=== PATIENT | male | born 1950 | race Asian ===

== ENCOUNTER 2018-06-23 16:47 | Emergency (ER) | payer MEDICARE, OTHER ==
[~2018-06-23] VITALS: Ht 180.3 cm; Wt 99.3 kg
[2018-06-23 16:59] VITALS: Ht 180.3 cm; Wt 99.3 kg
--- NOTE | 2018-06-23 20:48 | ERD ---
ER Documentation Chief Complaint Chief Complaint upper R gum bleeding after tooth extraction 6 hours ago HPI 68-year-old male presents with complaint of bleeding since he had a tooth extrac tion 6 hours ago. States that the bleeding is been continuous and he called his dentist and his dentist told him to come in to the ER. States that he takes aspirin which he stopped a week ago because he knew his can have the procedure. Denies being on any anticoagulants or having any coagulopathy. Denies lightheadedness palpitations, syncope, nausea, vomiting. Currently taking amoxicillin. Denies medical history or allergies. ROS All systems reviewed and are negative except as per history of present illness. Medications Home Meds Active Scripts Acetaminophen* (Tylophen*) 500 Mg Capsule, 2 CAP PO Q8H PRN for PAIN AND OR ELEVATED TEMP, #20 CAP Prov:YESSICA LOUIS 06/23/18 PMhx/Soc Medical and Surgical Hx: pt denies Medical Hx, pt denies Surgical Hx Hx Alcohol Use: No Hx Substance Use: No Hx Tobacco Use: No Smoking Status: Never smoker FmHx Family History: No diabetes, No coronary disease, No other Physical Exam Vitals Vital Signs Date Temp Pulse Resp B/P (MAP) Pulse Ox O2 O2 Flow FiO2 Time Delivery Rate 06/23/18 97.9 91 18 155/97 96 Room Air 21:28 (116) 06/23/18 97.9 94 18 159/72 95 16:59 (101) Physical Exam Const: No acute distress Head: Atraumatic Eyes: Normal Conjunctiva ENT: Normal External Ears, Nose and Mouth. Bleeding noted from the area of tooth extraction in the upper right gum. Bleeding is mild. There are no large clots noted. Neck: Full range of motion. No meningismus. Resp: Clear to auscultation bilaterally Cardio: Regular rate and rhythm, no murmurs Abd: Soft, non tender, non distended. Normal bowel sounds Skin: No petechiae or rashes Back: No midline or flank tenderness Ext: No cyanosis, or edema Neur: Awake and alert Psych: Normal Mood and Affect Procedures/MDM 68-year-old male presents with complaint of bleeding since he had a tooth extraction 6 hours ago. States that the bleeding is been continuous and he called his dentist and his dentist told him to come in to the ER. States that he takes aspirin which he stopped a week ago because he knew his can have the procedure. Denies being on any anticoagulants or having any coagulopathy. Denies lightheadedness palpitations, syncope, nausea, vomiting. Currently taking amoxicillin. Denies medical history or allergies. CBC and CMP ordered to rule out to rule out coagulopathy. Patient declined labs AGAINST MEDICAL ADVICE. Pressure was applied with gauze in the ER and bleeding was stopped. I advised patient to continue applying pressure and to follow-up with his primary care regarding his aspirin intake. Patient's bleeding was successfully controlled in the ER. Low suspicion for symptomatic anemia, shock, hypotension, or other emergent condition. Patient discharged with strict ER precautions. Patient advised to follow up with PMD. All questions answered at discharge. Departure Diagnosis: Primary Impression: Bleeding Condition: Stable YESSICA LOUIS Jun 23, 2018 20:47
[2018-06-23] MEDS ORDERED: ACET500C5 PO (21:20)
[2018-06-23 21:28] VITALS: BP 155/97; PULSE 91; RESP 18
== END 2018-06-23 21:30 | disposition home or self-care (01) ==
LOC: FTE 16:47
DX: K91.840 Postprocedural hemorrhage of a digestive system organ or structure following a digestive system procedure (principal)
CPT/HCPCS: 99282

== ENCOUNTER 2018-08-17 05:51 | Day surgery (SDC) | payer MEDICARE, OTHER ==
[2018-08-14 11:31] VITALS: Ht 154.9 cm; Wt 99.0 kg
[2018-08-17] VITALS (11 sets, daily range): BP systolic 121–150; BP diastolic 68–91; PULSE 80–91; RESP 11–43
[~2018-08-17] VITALS: Ht 154.9 cm; Wt 99.0 kg
[~2018-08-17 05:51] MED LIST: AMLO-147 PO; ASPI-817 PO; ATOR40TA68 PO; LOSA100T15 PO; METF500T24 PO; MULTI PO; OMEG-105 PO
[2018-08-17] MEDS ORDERED: CEFAZOLIN 2 GM/50 ML (PMX) 50 ML IVPB ONE (06:00)
[2018-08-17] MEDS: SOD CHLORIDE 0.9% 1,000 ML IV SCH ×2 (06:43→08:54)
[2018-08-17] MEDS ORDERED: ALLO300T2 PO (06:48)
[2018-08-17] MEDS ORDERED: BUPIVACAINE 0.25% (MPF) 30 ML INJ ONE (06:53)
[2018-08-17] MEDS ORDERED: LIDOCAINE 2% (MDV) 20 ML INJ ONE ×2 (07:20→08:17)
[2018-08-17] MEDS ORDERED: BUPIVACAINE 0.5% (SDV) 30 ML INJ ONE (07:20)
--- NOTE | 2018-08-17 07:20 | PREAC ---
Date/Time of Note Date/Time of Note DATE: 08/17/18 TIME: 07:18 Anesthesia Eval and Record Evaluation Time Pre-Procedure Interview DATE: 08/17/18 TIME: 07:18 Age 68 Sex male NPO: 8 hrs Preoperative diagnosis LEFT LEG MASS Planned procedure EXCISION LEFT LEG MASS Past Medical History Past Medical History: Includes Cardio: HTN, Dyslipidemia Endo: Diabetes Musculoskeletal: Other (GOUT) GI: Morbid obesity Surgery & Anesthesia Issues No known issue Meds Anticoagulation: No Beta Max within 24 hr: No Reason Beta Max not given: Pt. not on B-Max Reported Medications Allopurinol* (Allopurinol*) 300 Mg Tablet, 300 MG PO DAILY, TAB 08/17/18 Multivitamins* (Theragran*) 1 Tab Tab, 1 TAB PO DAILY, TAB 08/14/18 [place]-3 Fatty Acids/Fish Oil (Fish Oil 1,200 mg Softgel) 1 Each Capsule, 1 EACH PO TID, CAP 08/14/18 Aspirin* (Aspirin* EC) 81 Mg Tablet.dr, 81 MG PO DAILY, TAB 08/14/18 Amlodipine Besylate* (Amlodipine Besylate*) 10 Mg Tablet, 10 MG PO DAILY, #30 TAB 08/14/18 Losartan Potassium* (Losartan Potassium*) 100 Mg Tablet, 100 MG PO DAILY, TAB 08/14/18 Metformin Hcl* (Metformin Hcl*) 500 Mg Tablet, 500 MG PO WITH BREAKFAST, #30 TAB 08/14/18 Atorvastatin* (Atorvastatin*) 40 Mg Tablet, 10 MG PO QHS, #30 TAB 08/14/18 Discontinued Scripts Acetaminophen* (Tylophen*) 500 Mg Capsule, 2 CAP PO Q8H PRN for PAIN AND OR E LEVATED TEMP, #20 CAP Prov:YESSICA LOUIS 06/23/18 Current Medications Sodium Chloride 1,000 ml @ 75 mls/hr [id number] IV Last administered on 08/17/18at 06:43; Admin Dose 75 MLS/HR; Start 08/17/18 at 06:00; Stop 08/17/18 at 19:19 Meds reviewed: Yes Allergies Coded Allergies: No Known Allergy (Unverified , 08/17/18) Allergies Reviewed: Yes Labs/Studies Labs Reviewed: Reviewed by anesthesiologist test: N/A Studies: ECG (NL), CXR (NL) Pre-procedure Exam Last vitals Vital Signs Date p Pulse Resp B/P (MAP) Pulse Ox O2 O2 Flow FiO2 Time Delivery Rate 08/17/18 98.8 91 18 150/91 94 Room Air 07:00 (110) Airway: Adequate mouth opening, Adequate thyromental dist Mallampati: Mallampati II Teeth: Abnormal (UPPER PARTIAL) Lung: Normal Heart: Normal ASA Physical Status ASA physical status: 3 Emergency: None Planned Anesthetic General/MAC: MAC Planned Pain Management Parenteral pain med Pre-operative Attestations Prior to commencing anesthesia and surgery, the patient was re-evaluated, there was verification of: *The patient's identity *The results of appropriate recent lab work and preoperative vital signs *The above evaluation not changing prior to induction *Anesthetic plan, risk benefits, alternative and complications discussed with patient/family; questions answered; patient/family understands, accepts and wishes to proceed. Ruddy Ambrose M.D. August 17, 2018 07:20
[2018-08-17] MEDS ORDERED: ONDANSETRON 4 MG INJ IV PRN (07:30)
[2018-08-17] MEDS ORDERED: IPRATROPIUM (NEB) 0.5 MG/2.5 ML AMP HHN PRN (07:30)
[2018-08-17] MEDS ORDERED: hydrALAzine 20 MG INJ IV PRN (07:30)
[2018-08-17] MEDS ORDERED: ALBUTEROL 0.083% (NEB) 2.5 MG/3 ML AMP HHN PRN (07:30)
[2018-08-17] MEDS ORDERED: OXYCODONE/ACETAMINOPHEN (5/325) TAB PO PRN ×2 (07:30)
[2018-08-17] MEDS ORDERED: EPHEDrine SULFATE 50 MG/5 ML SYG IV PRN (07:30)
[2018-08-17] MEDS ORDERED: FENTAnyl 50 MCG/ML VIAL IV PRN ×3 (07:30)
[2018-08-17] MEDS ORDERED: DIPHENHYDRAMINE 50 MG INJ IV PRN (07:30)
[2018-08-17] MEDS ORDERED: MEPERIDINE 25 MG INJ IV PRN (07:30)
[2018-08-17] MEDS ORDERED: LABETALOL HCL 20MG INJ IV PRN (07:30)
[2018-08-17] MEDS ORDERED: HYDROmorphONE 1 MG/5 ML IV SYRINGE IV PRN ×3 (07:30)
[2018-08-17] MEDS ORDERED: TRIMETHOBENZAMIDE 100 MG/ML VIAL IM PRN (07:30)
[2018-08-17] MEDS ORDERED: MIDAZOLAM 1 MG/ML 2 ML INJ IV PRN (07:30)
[2018-08-17] MEDS ORDERED: LIDOCAINE 100 MG SYRINGE ONE (07:55)
[2018-08-17] MEDS ORDERED: PROPOFOL 20 ML ONE (07:55)
[2018-08-17] MEDS ORDERED: FENTAnyl 50 MCG/ML VIAL ONE (07:56)
--- NOTE | 2018-08-17 08:43 | OPR ---
Date/Time of Note Date/Time of Note DATE: 08/17/18 TIME: 08:36 Operative Report Procedure Date: August 17, 2018 Preoperative Diagnosis left leg mass Postoperative Diagnosis same Operation/Procedure Performed 1. excision of left leg mass 6 x 5 cm mass 6 cm incision 2. localized adjacent tissue transfer with the use of skin flaps 12 sq cm defect of left leg 3. therapeutic injection of subcutaneous local anesthesia Surgeon see signature line Highway Technician none Anesthesia Type: MAC Estimated Blood Loss: 0 - 10 ml's Transfusion none Specimen left leg mass Grafts/Implants none Complications none Pt Condition Post Procedure: stable Indications This is a 68-year-old male with painful left leg mass. He request surgical excision of the left leg mass. Risks alternatives benefits and personally discussed the patient. In particular patient was told about the risks of bleeding infection wound dehiscence and recurrence of mass and need for additional surgeries. Patient expressed understanding and consents to the operation. Procedure Description Patient is taken to the OR and prepped and draped in usual sterile fashion. Surgical time was performed. IV antibiotics given. Therapeutic contains local anesthesia was injected all around the mass. 15 blade was used to make elliptical incision around the mass and the mass was circumferentially excised. A large tissue defect remained. Hemostasis established. Due to large tissue defect localization to his transfer with use of skin flaps was performed. Multilayer closed with interrupted 2-0 Vicryl and 2-0 nylon. Small opening was left in the middle of the incision due to tension. This area would be closed by secondary intent. Dry dressing and Dru wrap was applied. Gwen PATEL August 17, 2018 08:43
[2018-08-17] MEDS ORDERED: HYDROCODONE/APAP (5/325) TAB PO ONE (09:00)
--- NOTE | 2018-08-17 09:06 | PAC ---
Date/Time of Note Date/Time of Note DATE: 08/17/18 TIME: 09:06 Post-Anesthesia Notes Post-Anesthesia Note Last documented vital signs Vital Signs Date Temp Pulse Resp B/P (MAP) Pulse Ox O2 O2 Flow FiO2 Time Delivery Rate 08/17/18 98.8 91 18 150/91 94 Room Air 07:00 (110) Activity: WNL Respiratory function: WNL Cardiovascular function: WNL Mental status: Baseline Pain reasonably controlled: Yes Hydration appropriate: Yes Nausea/Vomiting absent: Yes Ruddy Ambrose M.D. August 17, 2018 09:06
== END 2018-08-17 10:00 | disposition home or self-care (01) ==
LOC: SDS 05:51
PROVIDERS: ATTEND Surgery
DX: L72.0 Epidermal cyst (principal); E11.9 Type 2 diabetes mellitus without complications; I10 Essential (primary) hypertension; Z79.82 Long term (current) use of aspirin; Z79.84 Long term (current) use of oral hypoglycemic drugs
CPT/HCPCS: 14021; 82962; 88307; J0690; J2001; J3010